=== PATIENT | male | born 1975 | race Caucasian/White ===

== ENCOUNTER 2021-10-30 11:44 | Observation (INO) | payer OTHER ==
[2021-10-30] MEDS ORDERED: SODIUM CHLORIDE 1,000 ML IV SCH (12:30)
[2021-10-30] MEDS ORDERED: ACETAMINOPHEN 1000 MG/100 ML BAG IVPB ONE (13:11)
[2021-10-30] MEDS ORDERED: METOCLOPRAMIDE HCL INJECTION 10 MG/2 ML VIAL IVPB ONE (13:11)
[2021-10-30 13:13] LABS: BASO % 0.4 % (0-2.0); EOS % 1.4 % (0-4.5); HEMATOCRIT 43.9 % (35.4-49); HEMOGLOBIN 14.3 GM/dL (11.7-16.9); MCH 28.5 pg (25.7-33.7); MCHC 32.6 g/dl (32.0-35.9); MEAN CELL VOLUME 87.4 fl (80-96); MEAN PLT VOLUME 9.6 fl (7.5-11.1); MONO % 8.5 % (3.8-10.2); NEUT % 63.7 % (42.8-82.8); PLATELET COUNT 180 10^3/uL (134-434); RBC 5.03 M/mm3 (4.00-5.60); RDW 12.9 % (11.9-15.9); WHITE BLOOD COUNT 4.5 K/mm3 (4.0-10.0)
[2021-10-30] MEDS ORDERED: METOCLOPRAMIDE HCL INJECTION 10 MG/2 ML VIAL ONE (13:15)
[2021-10-30] MEDS ORDERED: ACETAMINOPHEN INJECTION 100 ML IVPB ONE (13:16)
[2021-10-30 13:17] VITALS: BMI 22.0
[2021-10-30 13:23] LABS: INR 1.16 (0.83-1.09); PROTHROMBIN TIME (PATIENT) 13.4 SEC (9.7-13.0)
[2021-10-30 13:26] LABS: ACTIVATED PTT 32.6 SECONDS (25.2-36.5)
[2021-10-30 13:30] LABS: ALBUMIN 4.9 g/dl (3.4-5.0)
[2021-10-30 13:31] LABS: BLOOD UREA NITROGEN 13.5 mg/dL (7-18)
[2021-10-30 13:35] LABS: TOT PROT 8.1 g/dl (6.4-8.2)
[2021-10-30 13:36] LABS: BILIRUBIN,TOTAL 1.4 mg/dL (0.2-1)
[2021-10-30 17:03] LABS: PH,URINE 7.5 (5.0-8.0); URINE APPEARANCE CLEAR; URINE BILIRUBIN NEGATIVE (NEGATIVE); URINE COLOR YELLOW; URINE GLUCOSE (UA) NEGATIVE (NEGATIVE); URINE KETONE 1+ (NEGATIVE); URINE LEUK ESTERASE NEGATIVE (NEGATIVE); URINE NITRITE NEGATIVE (NEGATIVE); URINE PROTEIN NEGATIVE (NEGATIVE)
[2021-10-30 19:57] LABS: URINE BENZODIAZEPINES NEGATIVE (NEGATIVE)
[2021-10-30 19:58] LABS: COCAINE, UR NEGATIVE (NEGATIVE); PHENCYCLIDINE,URINE NEGATIVE (NEGATIVE)
[2021-10-30 19:59] LABS: URINE BARBITURATES NEGATIVE (NEGATIVE)
[2021-10-30 20:03] LABS: METHADONE, UR NEGATIVE (NEGATIVE); OPIATES, URI NEGATIVE (NEGATIVE); URINE AMPHETAMINES NEGATIVE (NEGATIVE)
[2021-10-30] MEDS ORDERED: MELATONIN 5 MG TABLETS ONE (23:08)
[2021-10-30] MEDS ORDERED: MELATONIN 5 MG TABLETS PO SCH (23:30)
[2021-10-31 06:48] VITALS: BP 111/64; PULSE 60; TEMP 98
[2021-10-31] MEDS ORDERED: ENOXAPARIN NA (PORCINE) 40 MG/0.4 ML DISP.SYRIN SQ SCH (10:00)
== END 2021-10-31 07:54 | disposition left against medical advice (07) ==
LOC: JER 11:44 → INTOOBSV 15:20 → JERBED 15:20
PROVIDERS: ADMIT Internal Medicine
PROC: 3E033NZ Introduction of Analgesics, Hypnotics, Sedatives into Peripheral Vein, Percutaneous Approach (ICD-10-PCS; principal; 2021-10-30)
PROC: 3E033GC Introduction of Other Therapeutic Substance into Peripheral Vein, Percutaneous Approach (ICD-10-PCS; 2021-10-30)
PROC: 3E0337Z Introduction of Electrolytic and Water Balance Substance into Peripheral Vein, Percutaneous Approach (ICD-10-PCS; 2021-10-30)
DX: R07.9 Chest pain, unspecified (principal); N52.9 Male erectile dysfunction, unspecified; R33.9 Retention of urine, unspecified; Z29.9 Encounter for prophylactic measures, unspecified; F41.9 Anxiety disorder, unspecified
CPT/HCPCS: 36415; 70450-TC; 71045-TC-FY; 80053; 80061; 80307; 81003; 82550; 82553; 82962; 83036; 84484; 85025; 85379; 85610; 85730; 86850; 86900; 86901; 93005; 93010; 96374; 96375; 99285-25; C9803; G0378; U0003; U0005

== ENCOUNTER 2022-06-14 08:23 | Emergency (ER) | payer OTHER ==
[2022-06-14 08:49] VITALS: BP 125/79; PULSE 64; RESP 13; TEMP 97.4; BMI 21.7
[2022-06-14] MEDS ORDERED: SODIUM CHLORIDE 0.9% 500 ML INFUS.BAG IV ONE (08:49)
[2022-06-14 08:51] LABS: BASO % 0.5 % (0-2.0); EOS % 7.1 % (0-4.5); HEMATOCRIT 42.7 % (35.4-49); HEMOGLOBIN 13.9 GM/dL (11.7-16.9); LYMPH % 27.5 % (8-40); MCH 28.5 pg (25.7-33.7); MCHC 32.6 g/dl (32.0-35.9); MEAN CELL VOLUME 87.4 fl (80-96); MEAN PLT VOLUME 9.2 fl (7.5-11.1); MONO % 11.7 % (3.8-10.2); NEUT % 53.2 % (42.8-82.8); PLATELET COUNT 177 10^3/uL (134-434); RBC 4.89 M/mm3 (4.00-5.60); RDW 12.8 % (11.9-15.9)
[2022-06-14 08:58] LABS: INR 1.03 (0.83-1.09); PROTHROMBIN TIME (PATIENT) 11.9 SEC (9.7-13.0)
[2022-06-14 09:01] LABS: ACTIVATED PTT 30.7 SECONDS (25.2-36.5)
[2022-06-14 09:16] LABS: ALBUMIN 4.4 g/dl (3.4-5.0); BLOOD UREA NITROGEN 18.8 mg/dL (7-18); CALCIUM 9.3 mg/dL (8.5-10.1)
[2022-06-14 09:19] LABS: CREATININE 1.2 mg/dL (0.55-1.3)
[2022-06-14 09:22] LABS: BILIRUBIN,TOTAL 0.4 mg/dL (0.2-1); TOT PROT 7.6 g/dl (6.4-8.2)
== END 2022-06-14 12:45 | disposition left against medical advice (07) ==
LOC: JER 08:23
DX: R06.09 Other forms of dyspnea (principal); R33.9 Retention of urine, unspecified; R30.0 Dysuria
CPT/HCPCS: 0241U-QW; 36415; 71045-TC-FY; 80053; 84484; 85025; 85610; 85730; 93005; 93010; 99284-25